=== PATIENT | male | born 2000 | race Caucasian/White ===

== ENCOUNTER 2022-12-05 10:45 | Emergency (ER) | payer MEDICAID ==
[2022-12-05] MEDS ORDERED: traMADol HCl 50 MG TAB ONE (11:36)
[2022-12-05] MEDS ORDERED: Naproxen 500 MG TAB ONE (11:37)
== END 2022-12-05 12:11 | disposition home or self-care (01) ==
LOC: NAV ERS 10:45
DX: S83.92XA Sprain of unspecified site of left knee, initial encounter (principal); F17.210 Nicotine dependence, cigarettes, uncomplicated; W22.8XXA Striking against or struck by other objects, initial encounter